=== PATIENT | male | born 1950 | race African-American/Black ===

== ENCOUNTER 2020-03-13 15:00 | Inpatient (IN) | payer MEDICARE, MEDICAID ==
[~2020-03-13] VITALS: Ht 172.7 cm; Wt 105.7 kg
[2020-03-13 16:03] LABS: CHLORIDE 107 mEq/L (98-107)
[2020-03-13 16:05] LABS: HEMOGLOBIN. 13.5 g/dL (14.0-18.0); MEAN CORPUSCULAR HEMOGLOBIN 28.3 pg (28.0-32.0); MEAN PLATELET VOLUME 8.5 fl (7.4-10.4); PLATELET 201 x1000/uL (130-400); RED BLOOD CELL COUNT 4.78 mill/uL (4.7-6.1); RED CELL DISTRIBUTION WIDTH 20.9 % (11.6-14.6)
[2020-03-13 16:08] LABS: INR 1.8; PROTHROMBIN TIME 18.4 sec (9.6-11.0)
[2020-03-13 16:43] LABS: PLATELET ESTIMATE NORMAL
[2020-03-13] MEDS ORDERED: VANCOMYCIN 1 G PREMIX 200 ML IV SCH ×2 (17:30→22:45)
[2020-03-13] MEDS ORDERED: CEFTRIAXONE 1 G PREMIX 50 ML IV ONE (17:30)
[2020-03-13] MEDS ORDERED: HYDROCODONE/ACETAMINOPHEN 5/325MG TABLET PO ONE (19:30)
[2020-03-13] MEDS ORDERED: SODIUM CHLORIDE 0.9% 1000ML BAG (SEPSIS BOLUS) IV NR (19:30)
[2020-03-13 20:50] VITALS: BP 115/83
[2020-03-13 21:55] VITALS: BP 115/83
[2020-03-13] MEDS ORDERED: HYDR-3281 MT (22:28)
[2020-03-13] MEDS ORDERED: DEXTROSE 50% WATER 50ML SYRINGE IV PRN (22:45)
[2020-03-13] MEDS ORDERED: ACETAMINOPHEN 325MG TABLET PO PRN (22:45)
[2020-03-13] MEDS ORDERED: DIPHENHYDRAMINE 50MG/ML VIAL IV PRN (22:45)
[2020-03-13] MEDS ORDERED: ONDANSETRON HCL 4MG/2ML INJ IV PRN (22:45)
[2020-03-14] VITALS (12 sets, daily range): BP systolic 92–130; BP diastolic 49–91
[2020-03-14] MEDS ORDERED: SODIUM POLYSTYRENE SULFONATE 15 G/60 ML BOT PO SCH
[2020-03-14] MEDS: SODIUM BICARBONATE 100 MEQ in SODIUM CHLORIDE 0.45% 1,000 ML IV SCH ×2 (00:58→08:48)
[2020-03-14] MEDS: PIPERACILLIN/TAZOBACTAM 2.25 G in DEXTROSE 5% WATER 50 ML IV SCH ×3 (00:58→14:00)
[2020-03-14 06:57] LABS: HEMATOCRIT. 41.4 % (42.0-52.0); HEMOGLOBIN. 13.2 g/dL (14.0-18.0); MEAN CORPUSCULAR HEMOGLOBIN 28.1 pg (28.0-32.0); MEAN CORPUSCULAR VOLUME 88.4 fL (80.0-94.0); MEAN PLATELET VOLUME 8.9 fl (7.4-10.4); PLATELET 148 x1000/uL (130-400); RED BLOOD CELL COUNT 4.68 mill/uL (4.7-6.1); RED CELL DISTRIBUTION WIDTH 19.7 % (11.6-14.6)
[2020-03-14 07:03] LABS: CHLORIDE 108 mEq/L (98-107)
[2020-03-14 07:09] LABS: PHOSPHORUS 7.7 mg/dL (2.5-4.9)
[2020-03-14] MEDS ORDERED: BLOOD SUGAR DIAGNOSTIC STRIP TEST SCH (07:20)
[2020-03-14] MEDS ORDERED: INSULIN LISPRO 100 UNITS/ML SUBCUT SCH (07:50)
[2020-03-14] MEDS: ACETAMINOPHEN 325MG TABLET PO PRN (11:18)
[2020-03-14] MEDS ORDERED: LIDOCAINE HCL 1% 20ML VIAL (Pyxis) INJ ONE (11:35)
[2020-03-14] MEDS ORDERED: SODIUM BICARBONATE 4% (2.4MEQ) 5ML VIAL IV ONE (11:35)
[2020-03-14] MEDS ORDERED: HEPARIN 1000 UNITS/ML 10ML ONE (11:36)
[2020-03-14 13:34] LABS: BG BASE EXCESS -15.3 mmol/L (-2.0-2.0); BG CARBOXYHEMOGLOBIN 0.6 % (0.5-1.5); BG FRACTION INSPIRED OXYGEN 21; BG HCO3 ACT 9.8 mmol/L (22.0-26.0); BG METHEMOGLOBIN 0.2 % (0.0-1.5); BG OXYHEMOGLOBIN 95.2 % (94.0-97.0); BG PCO2 22.4 mmHg (35.0-45.0); BG PH 7.258 (7.350-7.450); BG SAMPLE SITE RIGHT BRACHIAL; BG VENT MODE ROOM AIR
[2020-03-14] MEDS: SEVELAMER CARBONATE 800 MG TABLET PO SCH ×2 (14:03→17:20)
[2020-03-14 14:14] LABS: PLATELET ESTIMATE NORMAL
[2020-03-14 17:55] LABS: CLARITY URINE CLEAR (CLEAR); COLOR URINE YELLOW (YELLOW); KETONES URINE NEGATIVE (NEGATIVE); LEUKOCYTE ESTERASE URINE 2+ (NEGATIVE); NITRITE URINE NEGATIVE (NEGATIVE); OCCULT BLOOD URINE 2+ (NEGATIVE); PROTEIN URINE 3+ (NEGATIVE); SPECIFIC GRAVITY URINE 1.019 (1.005-1.030)
[2020-03-14 18:26] LABS: *AMPHETAMINES SCREEN URINE NEGATIVE (NEGATIVE); *BARBITURATES SCREEN URINE NEGATIVE (NEGATIVE); *BENZODIAZEPINES SCREEN URINE NEGATIVE (NEGATIVE); *COCAINE SCREEN URINE NEGATIVE (NEGATIVE); CANNABINOID URINE SCREEN NEGATIVE (NEGATIVE); METHADONE URINE SCREEN NEGATIVE (NEGATIVE); OPIATES URINE SCREEN PRESUMTIVE POSITIVE (NEGATIVE); PHENCYCLIDINE URINE SCREEN NEGATIVE (NEGATIVE)
[2020-03-15] VITALS (13 sets, daily range): BP systolic 86–113; BP diastolic 44–72
[2020-03-15] MEDS: PIPERACILLIN/TAZOBACTAM 2.25 G in DEXTROSE 5% WATER 50 ML IV SCH ×4 (01:31→21:45)
[2020-03-15 04:51] LABS: CHLORIDE 107 mEq/L (98-107)
[2020-03-15 05:00] LABS: PHOSPHORUS 7.4 mg/dL (2.5-4.9)
[2020-03-15 05:22] LABS: HEPATITIS B SURFACE ANTIGEN NEGATIVE
[2020-03-15 05:42] LABS: HEMATOCRIT. 39.2 % (42.0-52.0); HEMOGLOBIN. 12.2 g/dL (14.0-18.0); MEAN CORPUSCULAR HEMOGLOBIN 27.8 pg (28.0-32.0); MEAN CORPUSCULAR VOLUME 89.3 fL (80.0-94.0); MEAN PLATELET VOLUME 8.3 fl (7.4-10.4); PLATELET 162 x1000/uL (130-400); RED BLOOD CELL COUNT 4.39 mill/uL (4.7-6.1); RED CELL DISTRIBUTION WIDTH 19.4 % (11.6-14.6)
[2020-03-15] MEDS: SODIUM BICARBONATE 100 MEQ in SODIUM CHLORIDE 0.45% 1,000 ML IV SCH ×3 (06:02→18:53)
[2020-03-15] MEDS: SEVELAMER CARBONATE 800 MG TABLET PO SCH ×3 (08:00→18:51)
[2020-03-15] MEDS ORDERED: MAGNESIUM 2 G PREMIX 50 ML IV SCH (12:00)
[2020-03-15 14:04] LABS: PLATELET ESTIMATE NORMAL
[2020-03-15] MEDS: CALCIUM CARBONATE 1250MG TABLET (500MG ELEMENTAL CALCIUM) PO SCH (18:51)
[2020-03-16] VITALS (12 sets, daily range): BP systolic 77–128; BP diastolic 36–79
[2020-03-16] MEDS: PIPERACILLIN/TAZOBACTAM 2.25 G in DEXTROSE 5% WATER 50 ML IV SCH ×3 (05:45→22:58)
[2020-03-16] MEDS ORDERED: LIDOCAINE HCL 1% 20ML VIAL (Pyxis) INJ ONE (07:52)
[2020-03-16] MEDS ORDERED: SODIUM BICARBONATE 4% (2.4MEQ) 5ML VIAL IV ONE (07:53)
[2020-03-16] MEDS ORDERED: HEPARIN 1000 UNITS/ML 10ML ONE (07:53)
[2020-03-16] MEDS: SEVELAMER CARBONATE 800 MG TABLET PO SCH ×3 (08:57→17:16)
[2020-03-16] MEDS: CALCIUM CARBONATE 1250MG TABLET (500MG ELEMENTAL CALCIUM) PO SCH ×3 (08:57→17:16)
[2020-03-16 09:08] LABS: A/G RATIO 0.7 (0.7-1.7); ALBUMIN 2.3 g/dL (2.9-4.4); ALPHA-1-GLOBULIN 0.3 g/dL (0.0-0.4); ALPHA-2-GLOBULIN 0.5 g/dL (0.4-1.0); BETA GLOBULIN 0.8 g/dL (0.7-1.3); GAMMA GLOBULINS 1.7 g/dL (0.4-1.8); GLOBULIN TOTAL 3.2 g/dL (2.2-3.9); HIV SCREEN 4G Non Reactive (Non Reactive); M-SPIKE Not Observed g/dL (Not Observed); TOTAL PROTEIN SERUM 5.5 g/dL (6.0-8.5)
[2020-03-16] MEDS ORDERED: ALBUMIN HUMAN 25GM/500ML (5%) IV SCH (10:00)
[2020-03-16] MEDS: SODIUM BICARBONATE 100 MEQ in SODIUM CHLORIDE 0.45% 1,000 ML IV SCH (12:37)
[2020-03-16] MEDS ORDERED: DIGOXIN 500MCG/2ML AMP IV SCH (13:00)
[2020-03-16] MEDS ORDERED: DILTIAZEM HCL 125 MG in DEXT 5% WATER 100 ML IV SCH (14:00)
[2020-03-16] MEDS ORDERED: DIGOXIN 500MCG/2ML AMP IV PRN (15:00)
[2020-03-16] MEDS: SODIUM BICARBONATE 150 MEQ in DEXTROSE 5% WATER 1,000 ML IV SCH (17:16)
[2020-03-17] VITALS (12 sets, daily range): BP systolic 108–137; BP diastolic 53–78
[2020-03-17] MEDS: DILTIAZEM HCL 30MG TABLET PO SCH ×4 (00:49→18:31)
[2020-03-17] MEDS: ACETAMINOPHEN 325MG TABLET PO PRN (05:08)
[2020-03-17] MEDS: PIPERACILLIN/TAZOBACTAM 2.25 G in DEXTROSE 5% WATER 50 ML IV SCH (05:08)
[2020-03-17 05:46] LABS: PHOSPHORUS 6.2 mg/dL (2.5-4.9)
[2020-03-17] MEDS: SODIUM BICARBONATE 150 MEQ in DEXTROSE 5% WATER 1,000 ML IV SCH ×2 (05:54→16:29)
[2020-03-17 06:35] LABS: HEMATOCRIT. 31.4 % (42.0-52.0); HEMOGLOBIN. 10.1 g/dL (14.0-18.0); MEAN CORPUSCULAR HEMOGLOBIN 27.9 pg (28.0-32.0); MEAN CORPUSCULAR VOLUME 86.8 fL (80.0-94.0); MEAN PLATELET VOLUME 8.4 fl (7.4-10.4); PLATELET 114 x1000/uL (130-400); RED BLOOD CELL COUNT 3.61 mill/uL (4.7-6.1); RED CELL DISTRIBUTION WIDTH 19.8 % (11.6-14.6)
[2020-03-17] MEDS: SEVELAMER CARBONATE 800 MG TABLET PO SCH ×3 (08:51→18:00)
[2020-03-17] MEDS: CALCIUM CARBONATE 1250MG TABLET (500MG ELEMENTAL CALCIUM) PO SCH ×3 (08:51→18:00)
[2020-03-17] MEDS ORDERED: LIDOCAINE HCL 1% 20ML VIAL (Pyxis) INJ ONE (09:02)
[2020-03-17] MEDS ORDERED: HEPARIN 1000 UNITS/ML 10ML ONE (09:03)
[2020-03-17] MEDS: MAGNESIUM OXIDE 400MG TABLET PO SCH (12:07)
[2020-03-17 13:06] LABS: ANTI-MYELOPEROXIDASE AB < 9.0 U/mL (0.0-9.0); ANTI-PROTEINASE 3 ABS < 3.5 U/mL (0.0-3.5); ATYPICAL P-ANCA <1:20 titer (Neg:<1:20); CYTOPLASMIC C-ANCA <1:20 titer (Neg:<1:20); PERINUCLEAR P-ANCA <1:20 titer (Neg:<1:20)
[2020-03-17 13:06] LABS: MICROALBUMIN URINE 1041.5 ug/mL (Not Estab.)
[2020-03-17] MEDS: CALCITRIOL 0.5MCG CAPSULE PO SCH (16:28)
[2020-03-17] MEDS: CEPHALEXIN 250MG CAPSULE PO SCH ×2 (16:28→23:09)
[2020-03-17 16:40] LABS: PLATELET ESTIMATE DECREASED
[2020-03-17] MEDS ORDERED: MAGNESIUM 2 G PREMIX 50 ML IV NR (23:00)
[2020-03-18] VITALS (12 sets, daily range): BP systolic 98–137; BP diastolic 54–117
[2020-03-18 06:15] LABS: INR 1.3
[2020-03-18 06:28] LABS: HEMATOCRIT. 30.7 % (42.0-52.0); HEMOGLOBIN. 10.1 g/dL (14.0-18.0); MEAN CORPUSCULAR HEMOGLOBIN 28.4 pg (28.0-32.0); MEAN CORPUSCULAR VOLUME 86.6 fL (80.0-94.0); MEAN PLATELET VOLUME 8.7 fl (7.4-10.4); PLATELET 94 x1000/uL (130-400); RED BLOOD CELL COUNT 3.54 mill/uL (4.7-6.1)
[2020-03-18] MEDS: SODIUM BICARBONATE 150 MEQ in DEXTROSE 5% WATER 1,000 ML IV SCH ×2 (06:36→19:00)
[2020-03-18] MEDS: DILTIAZEM HCL 30MG TABLET PO SCH ×4 (06:37→22:00)
[2020-03-18 07:45] LABS: PHOSPHORUS 5.1 mg/dL (2.5-4.9)
[2020-03-18] MEDS: CALCITRIOL 0.5MCG CAPSULE PO SCH (08:40)
[2020-03-18] MEDS: CEPHALEXIN 250MG CAPSULE PO SCH ×2 (08:40→20:47)
[2020-03-18] MEDS: CALCIUM CARBONATE 1250MG TABLET (500MG ELEMENTAL CALCIUM) PO SCH ×3 (08:40→18:00)
[2020-03-18] MEDS: MAGNESIUM OXIDE 400MG TABLET PO SCH (08:40)
[2020-03-18] MEDS: SEVELAMER CARBONATE 800 MG TABLET PO SCH ×3 (08:41→18:00)
[2020-03-18] MEDS ORDERED: CARVEDILOL 3.125 MG TABLET PO SCH (11:00)
[2020-03-18 13:45] LABS: PLATELET ESTIMATE DECREASED
[2020-03-18] MEDS ORDERED: CALCIUM GLUCONATE 100MG/ML 10ML VIAL IV ONE (13:45)
[2020-03-18] MEDS ORDERED: CALCIUM GLUCONATE 1,000 MG in SODIUM CHLORIDE 0.9% 100 ML IV SCH (15:00)
[2020-03-18] MEDS: HYDROCODONE/ACETAMINOPHEN 5/325MG TABLET PO PRN (16:10)
[2020-03-18] MEDS: CARVEDILOL 3.125 MG TABLET PO SCH (20:48)
[2020-03-19] VITALS (10 sets, daily range): BP systolic 94–138; BP diastolic 51–74
[2020-03-19] MEDS: DILTIAZEM HCL 30MG TABLET PO SCH ×2 (06:08→14:00)
[2020-03-19] MEDS: SODIUM BICARBONATE 150 MEQ in DEXTROSE 5% WATER 1,000 ML IV SCH (06:31)
[2020-03-19 07:06] LABS: INR 1.4; PROTHROMBIN TIME 14.2 sec (9.6-11.0)
[2020-03-19 07:08] LABS: HEMATOCRIT. 30.2 % (42.0-52.0); HEMOGLOBIN. 9.8 g/dL (14.0-18.0); MEAN CORPUSCULAR HEMOGLOBIN 28.4 pg (28.0-32.0); MEAN PLATELET VOLUME 8.3 fl (7.4-10.4); PLATELET 79 x1000/uL (130-400); RED BLOOD CELL COUNT 3.47 mill/uL (4.7-6.1); RED CELL DISTRIBUTION WIDTH 19.5 % (11.6-14.6)
[2020-03-19 07:28] LABS: CHLORIDE 101 mEq/L (98-107)
[2020-03-19 07:50] LABS: PHOSPHORUS 4.8 mg/dL (2.5-4.9)
[2020-03-19] MEDS: CALCIUM CARBONATE 1250MG TABLET (500MG ELEMENTAL CALCIUM) PO SCH ×3 (08:00→17:29)
[2020-03-19] MEDS: SEVELAMER CARBONATE 800 MG TABLET PO SCH ×3 (08:00→17:29)
[2020-03-19] MEDS ORDERED: SODIUM BICARBONATE 4% (2.4MEQ) 5ML VIAL IV ONE (08:49)
[2020-03-19] MEDS ORDERED: LIDOCAINE HCL 1% 20ML VIAL (Pyxis) INJ ONE (08:49)
[2020-03-19] MEDS: CARVEDILOL 3.125 MG TABLET PO SCH ×2 (09:00→23:19)
[2020-03-19] MEDS: CEPHALEXIN 250MG CAPSULE PO SCH ×2 (09:00→21:45)
[2020-03-19] MEDS: CALCITRIOL 0.5MCG CAPSULE PO SCH (09:00)
[2020-03-19] MEDS: MAGNESIUM OXIDE 400MG TABLET PO SCH (09:00)
[2020-03-19] MEDS ORDERED: DEXMEDETOMIDINE 400 MCG/100 ML 100 ML IV PRN (10:00)
[2020-03-19] MEDS ORDERED: DEXAMETHASONE 4MG/ML 1ML VIAL ONE (10:15)
[2020-03-19] MEDS ORDERED: FENTANYL CITRATE/PF 50MCG/ML 2ML VIAL ONE (10:15)
[2020-03-19] MEDS ORDERED: ONDANSETRON HCL 4MG/2ML INJ ONE (10:15)
[2020-03-19] MEDS ORDERED: PROPOFOL 200MG/20ML VIAL IV ONE (10:15)
[2020-03-19] MEDS ORDERED: METOCLOPRAMIDE HCL 10MG/2ML VIAL ONE (10:21)
[2020-03-19 10:38] LABS: PLATELET ESTIMATE DECREASED
[2020-03-20] VITALS (12 sets, daily range): BP systolic 92–136; BP diastolic 46–63
[2020-03-20] MEDS: DILTIAZEM HCL 30MG TABLET PO SCH ×4 (00:14→22:00)
[2020-03-20] MEDS: SEVELAMER CARBONATE 800 MG TABLET PO SCH ×3 (08:27→17:53)
[2020-03-20] MEDS: MAGNESIUM OXIDE 400MG TABLET PO SCH (08:27)
[2020-03-20] MEDS: CALCIUM CARBONATE 1250MG TABLET (500MG ELEMENTAL CALCIUM) PO SCH ×3 (08:28→17:53)
[2020-03-20] MEDS: CALCITRIOL 0.5MCG CAPSULE PO SCH (08:28)
[2020-03-20] MEDS: CARVEDILOL 3.125 MG TABLET PO SCH ×2 (08:29→21:08)
[2020-03-20] MEDS: CEPHALEXIN 250MG CAPSULE PO SCH ×2 (08:30→21:08)
[2020-03-20 09:06] LABS: HEMATOCRIT. 30.3 % (42.0-52.0); HEMOGLOBIN. 9.6 g/dL (14.0-18.0); MEAN CORPUSCULAR HEMOGLOBIN 27.9 pg (28.0-32.0); MEAN CORPUSCULAR VOLUME 87.6 fL (80.0-94.0); MEAN PLATELET VOLUME 9.1 fl (7.4-10.4); PLATELET 68 x1000/uL (130-400); RED BLOOD CELL COUNT 3.46 mill/uL (4.7-6.1); RED CELL DISTRIBUTION WIDTH 20.5 % (11.6-14.6)
[2020-03-20 11:32] LABS: PLATELET ESTIMATE DECREASED
[2020-03-20] MEDS: HYDROCODONE/ACETAMINOPHEN 5/325MG TABLET PO PRN (14:30)
[2020-03-20] MEDS ORDERED: EPOETIN ALFA 4000UNITS/ML VIAL SUBCUT SCH (21:00)
[2020-03-20] MEDS: EPOETIN ALFA-EPBX 4,000 UNIT/ML VIAL SUBCUT SCH (21:00)
[2020-03-21] VITALS (13 sets, daily range): BP systolic 95–155; BP diastolic 43–69
[2020-03-21] MEDS: DILTIAZEM HCL 30MG TABLET PO SCH ×3 (06:00→21:05)
[2020-03-21 07:04] LABS: HEMATOCRIT. 29.9 % (42.0-52.0); HEMOGLOBIN. 9.5 g/dL (14.0-18.0); MEAN CORPUSCULAR HEMOGLOBIN 28.4 pg (28.0-32.0); MEAN CORPUSCULAR VOLUME 89.3 fL (80.0-94.0); PLATELET 58 x1000/uL (130-400); RED BLOOD CELL COUNT 3.35 mill/uL (4.7-6.1); RED CELL DISTRIBUTION WIDTH 20.7 % (11.6-14.6)
[2020-03-21 07:39] LABS: PHOSPHORUS 2.9 mg/dL (2.5-4.9)
[2020-03-21] MEDS: MAGNESIUM OXIDE 400MG TABLET PO SCH (08:22)
[2020-03-21] MEDS: CALCIUM CARBONATE 1250MG TABLET (500MG ELEMENTAL CALCIUM) PO SCH ×3 (08:24→18:06)
[2020-03-21] MEDS: CEPHALEXIN 250MG CAPSULE PO SCH ×2 (08:24→21:05)
[2020-03-21] MEDS: CALCITRIOL 0.5MCG CAPSULE PO SCH (08:24)
[2020-03-21] MEDS: HYDROCODONE/ACETAMINOPHEN 5/325MG TABLET PO PRN (08:24)
[2020-03-21] MEDS: SEVELAMER CARBONATE 800 MG TABLET PO SCH ×3 (08:24→18:06)
[2020-03-21] MEDS: CARVEDILOL 3.125 MG TABLET PO SCH ×2 (08:30→21:05)
[2020-03-21 11:44] LABS: PLATELET ESTIMATE DECREASED
[2020-03-21] MEDS ORDERED: MAGNESIUM 2 G PREMIX 50 ML IV NR (13:00)
[2020-03-22] VITALS (14 sets, daily range): BP systolic 94–135; BP diastolic 26–74
[2020-03-22] MEDS: DILTIAZEM HCL 30MG TABLET PO SCH ×3 (05:12→22:29)
[2020-03-22] MEDS: HYDROCODONE/ACETAMINOPHEN 5/325MG TABLET PO PRN (05:37)
[2020-03-22 06:01] LABS: PHOSPHORUS 2.9 mg/dL (2.5-4.9)
[2020-03-22 06:11] LABS: HEMATOCRIT. 29.3 % (42.0-52.0); HEMOGLOBIN. 9.4 g/dL (14.0-18.0); MEAN CORPUSCULAR HEMOGLOBIN 28.4 pg (28.0-32.0); MEAN CORPUSCULAR VOLUME 88.4 fL (80.0-94.0); MEAN PLATELET VOLUME 8.9 fl (7.4-10.4); PLATELET 60 x1000/uL (130-400); RED BLOOD CELL COUNT 3.31 mill/uL (4.7-6.1); RED CELL DISTRIBUTION WIDTH 20.3 % (11.6-14.6)
[2020-03-22] MEDS: SEVELAMER CARBONATE 800 MG TABLET PO SCH ×3 (08:45→18:24)
[2020-03-22] MEDS: CEPHALEXIN 250MG CAPSULE PO SCH (08:45)
[2020-03-22] MEDS: CALCITRIOL 0.5MCG CAPSULE PO SCH (08:47)
[2020-03-22] MEDS: CALCIUM CARBONATE 1250MG TABLET (500MG ELEMENTAL CALCIUM) PO SCH ×3 (08:47→18:24)
[2020-03-22] MEDS: CARVEDILOL 3.125 MG TABLET PO SCH ×2 (08:48→22:29)
[2020-03-22] MEDS: MAGNESIUM OXIDE 400MG TABLET PO SCH (08:58)
[2020-03-22 10:08] LABS: PLATELET ESTIMATE DECREASED
[2020-03-22] MEDS ORDERED: HEPARIN SODIUM 1,000 UNIT/1ML VIAL IV NR (12:30)
[2020-03-22] MEDS: ACETAMINOPHEN 325MG TABLET PO PRN (22:30)
[2020-03-23] VITALS (12 sets, daily range): BP systolic 90–129; BP diastolic 30–75
[2020-03-23] MEDS: DILTIAZEM HCL 30MG TABLET PO SCH ×3 (06:00→21:10)
[2020-03-23 06:50] LABS: BASOPHILS % 0.6 % (0.0-2.0); EOSINOPHILS % 2.5 % (0.0-5.0); HEMATOCRIT. 28.9 % (42.0-52.0); HEMOGLOBIN. 9.2 g/dL (14.0-18.0); LYMPHOCYTES % 7.6 % (20.0-50.0); MEAN CORPUSCULAR HEMOGLOBIN 28.2 pg (28.0-32.0); MEAN CORPUSCULAR VOLUME 88.9 fL (80.0-94.0); MEAN PLATELET VOLUME 9.9 fl (7.4-10.4); MONOCYTES % 13.2 % (2.0-8.0); NEUTROPHILS % 76.1 % (40.0-76.0); PLATELET 62 x1000/uL (130-400); RED BLOOD CELL COUNT 3.25 mill/uL (4.7-6.1); RED CELL DISTRIBUTION WIDTH 20.2 % (11.6-14.6)
[2020-03-23 06:55] LABS: PHOSPHORUS 2.8 mg/dL (2.5-4.9)
[2020-03-23] MEDS: CARVEDILOL 3.125 MG TABLET PO SCH ×2 (09:00→21:10)
[2020-03-23] MEDS ORDERED: CALCITRIOL 0.5MCG CAPSULE PO SCH (09:00)
[2020-03-23] MEDS: MAGNESIUM OXIDE 400MG TABLET PO SCH (09:18)
[2020-03-23] MEDS: CALCIUM CARBONATE 1250MG TABLET (500MG ELEMENTAL CALCIUM) PO SCH ×3 (09:18→18:13)
[2020-03-23] MEDS: SEVELAMER CARBONATE 800 MG TABLET PO SCH ×3 (09:18→18:13)
[2020-03-23 11:04] LABS: HEPATITIS B SURFACE AB < 3.1 mIU/mL
[2020-03-23] MEDS: EPOETIN ALFA-EPBX 4,000 UNIT/ML VIAL SUBCUT SCH ×2 (21:00→21:11)
[2020-03-23] MEDS: ACETAMINOPHEN 325MG TABLET PO PRN (21:09)
[2020-03-24 05:00] VITALS: BP 103/47
[2020-03-24] MEDS: DILTIAZEM HCL 30MG TABLET PO SCH (05:11)
[2020-03-24 06:00] VITALS: BP 87/41
[2020-03-24 06:27] LABS: HEMATOCRIT. 28.1 % (42.0-52.0); HEMOGLOBIN. 8.9 g/dL (14.0-18.0); MEAN CORPUSCULAR HEMOGLOBIN 28.5 pg (28.0-32.0); MEAN CORPUSCULAR VOLUME 89.8 fL (80.0-94.0); MEAN PLATELET VOLUME 9.6 fl (7.4-10.4); PLATELET 85 x1000/uL (130-400); RED BLOOD CELL COUNT 3.14 mill/uL (4.7-6.1); RED CELL DISTRIBUTION WIDTH 20.5 % (11.6-14.6)
[2020-03-24 06:49] LABS: PHOSPHORUS 2.9 mg/dL (2.5-4.9)
[2020-03-24 08:00] VITALS: BP 90/56
[2020-03-24] MEDS: CALCIUM CARBONATE 1250MG TABLET (500MG ELEMENTAL CALCIUM) PO SCH ×2 (08:27→13:00)
[2020-03-24] MEDS: MAGNESIUM OXIDE 400MG TABLET PO SCH (08:27)
[2020-03-24] MEDS: SEVELAMER CARBONATE 800 MG TABLET PO SCH ×2 (08:27→13:00)
[2020-03-24] MEDS: CARVEDILOL 3.125 MG TABLET PO SCH (08:28)
[2020-03-24 08:53] LABS: PLATELET ESTIMATE DECREASED
[2020-03-24] MEDS ORDERED: CALCITRIOL 0.5MCG CAPSULE PO SCH (09:00)
[2020-03-24 12:22] VITALS: BP 90/56
[2020-03-24 14:00] VITALS: BP 107/60
== END 2020-03-24 14:35 | disposition home or self-care (01) | DRG 720 ==
LOC: ER 15:00 → 6WST 19:27 → EDBEDREQ 19:36 → EDBEDREQTM 19:36 → EDBEDREQSVC 19:36 → ENRESERV 19:59 → 5EST 03-14 00:12
PROVIDERS: ADMIT Internal Medicine; ATTEND Internal Medicine
PROC: 05HY33Z Insertion of Infusion Device into Upper Vein, Percutaneous Approach (ICD-10-PCS; principal; 2020-03-16)
PROC: 0JH63XZ Insertion of Tunneled Vascular Access Device into Chest Subcutaneous Tissue and Fascia, Percutaneous Approach (ICD-10-PCS; 2020-03-19)
PROC: 02HV33Z Insertion of Infusion Device into Superior Vena Cava, Percutaneous Approach (ICD-10-PCS; 2020-03-19)
PROC: B518ZZA Fluoroscopy of Superior Vena Cava, Guidance (ICD-10-PCS; 2020-03-19)
PROC: B548ZZA Ultrasonography of Superior Vena Cava, Guidance (ICD-10-PCS; 2020-03-19)
PROC: 5A1D70Z Performance of Urinary Filtration, Intermittent, Less than 6 Hours Per Day (ICD-10-PCS; 2020-03-19)
PROC: 5A1D70Z Performance of Urinary Filtration, Intermittent, Less than 6 Hours Per Day (ICD-10-PCS; 2020-03-22)
DX: A41.9 Sepsis, unspecified organism (principal); C73 Malignant neoplasm of thyroid gland; E87.2 Acidosis; E87.5 Hyperkalemia; L03.114 Cellulitis of left upper limb; N17.9 Acute kidney failure, unspecified; E83.39 Other disorders of phosphorus metabolism; R65.20 Severe sepsis without septic shock; L89.890 Pressure ulcer of other site, unstageable; L89.156 Pressure-induced deep tissue damage of sacral region; S50.822A Blister (nonthermal) of left forearm, initial encounter; X58.XXXA Exposure to other specified factors, initial encounter; I47.1 Supraventricular tachycardia; E83.51 Hypocalcemia; D63.8 Anemia in other chronic diseases classified elsewhere; E43 Unspecified severe protein-calorie malnutrition; E88.09 Other disorders of plasma-protein metabolism, not elsewhere classified; R06.89 Other abnormalities of breathing; R09.02 Hypoxemia; I87.8 Other specified disorders of veins; L85.3 Xerosis cutis; C79.51 Secondary malignant neoplasm of bone; R57.9 Shock, unspecified; N18.6 End stage renal disease; E83.42 Hypomagnesemia; I13.2 Hypertensive heart and chronic kidney disease with heart failure and with stage 5 chronic kidney disease, or end stage renal disease; D69.6 Thrombocytopenia, unspecified; D68.9 Coagulation defect, unspecified; Z20.828 Contact with and (suspected) exposure to other viral communicable diseases; Z82.49 Family history of ischemic heart disease and other diseases of the circulatory system; Z83.3 Family history of diabetes mellitus; Z87.891 Personal history of nicotine dependence; Z59.0 Homelessness; Z92.3 Personal history of irradiation; Y93.89 Activity, other specified; Y92.89 Other specified places as the place of occurrence of the external cause; Y99.8 Other external cause status; Z68.35 Body mass index [BMI] 35.0-35.9, adult; I50.20 Unspecified systolic (congestive) heart failure
CPT/HCPCS: 36415; 36558; 36600; 71045; 73090; 76700; 76937; 77001; 80048; 80053; 80305; 81003; 82040; 82043; 82330; 82375; 82570; 82805; 82962; 83036; 83520; 83605; 83735; 83935; 84100; 84134; 84145; 84155; 84165; 84300; 84484; 85025; 86022; 86256; 86705; 86706; 86800; 86803; 87340; 87389; 87426; 93005; 93306; 93923; 93971; 96365; 99291; C1725; C1750; C1752; C1769; J0610; J0696; J0885; J1100; J1160; J1200; J1642; J1644; J2405; J2543; J2704; J2765; J3010; J3370; J3475; J3490; J7050; J7060; J7070; P9041